=== PATIENT | female | born 1990 | race Caucasian/White ===

== ENCOUNTER 2023-11-19 08:50 | Outpatient (OUT) | payer OTHER, SELFPAY ==
--- NOTE | 2023-11-19 08:52 | US_ITS ---
The [address] [address] Patient Name: KARLA HILL MRN: [id number] date: 1990 Sex: F Assigned Patient Location: US Current Patient Location: Accession/Order Number: [id number] Exam Date: 11/19/2023 08:53 Report Date: 11/19/2023 10:02 At the request of: TEJAS SHAH Procedure: US thyroid EXAMINATION: US thyroid HISTORY: Thyroid Nodule E04.1 COMPARISON: No relevant comparison available. TECHNIQUE: Sonographic images of the thyroid gland were obtained. FINDINGS: The right thyroid lobe is normal in size, contour and homogeneous echotexture measuring 4.4 x 1.0 x 1.0 cm. No focal nodule The thyroid isthmus measures 2 mm. No focal nodule The left thyroid lobe is normal in size, contour and homogeneous echotexture measuring 3.4 x 0.6 x 0.9 cm. No focal nodule Normal size normal morphology lymph node noted adjacent to the left thyroid lobe measuring 0.8 x 0.3 x 0.5 mm in size US/US thyroid IMPRESSION: Normal exam Electronically authenticated by: ELLYN RAO Date: 11/19/2023 10:02
[2023-11-19 09:48] LABS: Basophils Absolute Auto 0.1 10^3/uL (0.0-0.1); Basophils Percent Auto 1.5 % (0.2-2.0); Eosinophils Absolute Auto 0.2 10^3/uL (0.0-0.7); Eosinophils Percent Auto 2.9 % (0.9-7.0); Hematocrit 39.8 % (36.0-48.0); Hemoglobin 12.3 g/dL (12.0-16.0); Immature Granulocytes Abs Auto 0.02 10^3/uL (0.00-0.03); Immature Granulocytes Pct Auto 0.3 % (0.0-0.5); Lymphocytes Absolute Auto 2.1 10^3/uL (1.2-3.8); Lymphocytes Percent Auto 31.3 % (20.5-60.0); Mean Corpuscular HGB Conc 30.9 g/dL (29.9-35.2); Mean Corpuscular Hemoglobin 27.2 pg (26.7-34.0); Mean Corpuscular Volume 88.1 fL (81.0-99.0); Mean Platelet Volume 11.2 fL (9.5-13.5); Monocytes Absolute Auto 0.5 10^3/uL (0.3-0.8); Monocytes Percent Auto 7.1 % (1.7-12.0); Neutrophils Absolute Auto 3.9 10^3/uL (1.4-6.5); Neutrophils Percent Auto 56.9 % (43.0-75.0); Platelet Count 311 10^3/uL (150-450); Red Blood Count 4.52 10^6/uL (4.20-5.40); White Blood Count 6.8 10^3/uL (4.0-11.0)
[2023-11-19 10:56] LABS: Free T4 1.43 ng/dL (0.76-1.46)
[2023-11-19 10:56] LABS: Bilirubin Urine NEGATIVE (NEGATIVE); Blood Urine NEGATIVE (NEGATIVE); Clarity Urine CLEAR (CLEAR); Color Urine LT. YELLOW (YELLOW); Glucose Urine UA NEGATIVE (NEGATIVE); Ketones Urine NEGATIVE (NEGATIVE); Leukocyte Esterase Urine NEGATIVE (NEGATIVE); Nitrite Urine NEGATIVE (NEGATIVE); Protein Urine NEGATIVE (NEG/TRACE); Urobilinogen Urine 0.2 EU/dL (0.2-1.0)
[2023-11-19 10:58] LABS: Alanine Aminotransferase 23 U/L (14-59); Albumin Globulin Ratio 0.9; Albumin Level 3.6 g/dL (3.4-5.0); Alkaline Phosphatase 61 U/L (46-116); Anion Gap 8.6; Aspartate Amino Transferase 12 U/L (15-37); BUN Creatinine Ratio 13.2; Bilirubin Total 0.4 mg/dL (0.2-1.0); Calcium 9.2 mg/dL (8.5-10.1); Carbon Dioxide 31.3 mmol/L (21.0-32.0); Chloride 104 mmol/L (98-107); Chol HDL Ratio 5.8; Cholesterol 215 mg/dL (<=200); Estimated GFR (African America >60 (>=60); Estimated GFR (Non-African Ame >60 (>=60); Glucose 89 mg/dL (74-106); HDL Cholesterol 37 mg/dL (40-60); Potassium 3.9 mmol/L (3.5-5.1); Sodium 140 mmol/L (136-145); Total Protein 7.6 g/dL (6.4-8.2); Triglycerides 169 mg/dL (<=150); VLDL CHOLESTEROL 33.8 mg/dL
[2023-11-19 10:58] LABS: Urine Microscopic Indicated NO
== END 2023-11-19 08:51 | disposition home or self-care (01) ==
LOC: US 08:50
PROVIDERS: PCP Nurse Practitioner; Visit Provider Nurse Practitioner
DX: Z00.00 Encounter for general adult medical examination without abnormal findings (principal); E04.1 Nontoxic single thyroid nodule
CPT/HCPCS: 36415; 76536; 80053; 80061; 81003; 84439; 84443; 85025

== ENCOUNTER 2024-12-12 14:07 | Outpatient (OUT) | payer OTHER, SELFPAY ==
--- OUTSIDE RECORDS SUMMARY | 2024-12-12 14:19 | XMS_ITS | CCD ---
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 160 - 189 mg/dl HIGH >190 mg/dl VERY HIGH Performed By: #### C MP, LIPID, TSH #### [facility] [address] [address] [address] Chico Grady Triglyceride [Mass/Vol] 177 mg/dL Critically high <=150 [facility] Comment on above: Performed By: #### C MP, LIPID, TSH #### [facility] [address] [address] [address] Chico Grady VLDL CALC 35.4 mg/dL Normal [facility] Comment on above: Performed By: #### C MP, LIPID, TSH #### [facility] [address] [address] [address] Chico Grady PROF 14(COMP METB)on 022 Albumin [Mass/Vol] 3.6 g/dL Normal 3.4-5.[address] [facility] Comment on above: Performed By: #### C MP, LIPID, TSH #### [facility] [address] [address] [address] Chico Grady Albumin/Globulin [Mass ratio] 1.0 {ratio} Normal [facility] Comment on above: Performed By: #### C MP, LIPID, TSH #### [facility] [address] [address] [address] Chico Grady ALP [Catalytic activity/Vol] 55 U/L Normal 46-116 [facility] Comment on above: Performed By: #### C MP, LIPID, TSH #### [facility] [address] [address] [address] Chico Grady ALT [Catalytic activity/Vol] 23 U/L Normal 14-59 [facility] Comment on above: Performed By: #### C MP, LIPID, TSH #### [facility] [address] [address] [address] Chico Grady Anion gap [Moles/Vol] 14.4 mmol/L Normal [facility] Comment on above: Performed By: #### C MP, LIPID, TSH #### [facility] [address] [address] [address] Chico Grady AST [Catalytic activity/Vol] 16 U/L Normal 15-37 [facility] Comment on above: Performed By: #### C MP, LIPID, TSH #### [facility] [address] [place] [address] Dr. Chico Grady Bilirubin [Mass/Vol] 0.5 mg/dL Normal 0.2-1.0 [facility] Comment on above: Performed By: #### C MP, LIPID, TSH #### [facility] [address] [address] [address] Chico Grady Calcium [Mass/Vol] 9.0 mg/dL Normal 8.5-10.[address] [facility] Comment on above: Performed By: #### C MP, LIPID, TSH #### [facility] [address] [place] [address] Dr. Chico Grady Chloride [Moles/Vol] 104 mmol/L Normal 98-107 [facility] Comment on above: Performed By: #### C MP, LIPID, TSH #### [facility] [address] [address] [address] Chico Grady CO2 [Moles/Vol] 22.5 mmol/L Normal 21.0-32.0 [facility] Comment on above: Performed By: #### C MP, LIPID, TSH #### [facility] [address] [address] [address] Chico Grady Creatinine [Mass/Vol] 0.84 mg/dL Normal 0.55-1.02 [facility] Comment on above: Performed By: #### C MP, LIPID, TSH #### [facility] [address] [address] [address] Chico Grady EGFR-AF KITTITIAN >60 Normal >=60 [facility] Comment on above: Performed By: #### C MP, LIPID, TSH #### [facility] [address] [address] [address] Chico Grady EGFR-NON AF KITTITIAN >60 Normal >=60 [facility] Comment on above: Performed By: #### C MP, LIPID, TSH #### [facility] [address] [address] [address] Chico Grady Globulin (S) [Mass/Vol] 3.7 g/dL Normal [facility] Comment on above: Performed By: #### C MP, LIPID, TSH #### [facility] [address] [address] [address] Chico Grady Glucose [Mass/Vol] 97 mg/dL Normal 74-[address] [facility] Comment on above: Performed By: #### C MP, LIPID, TSH #### [facility] [address] [address] [address] Chico Grady Potassium [Moles/Vol] 3.9 mmol/L Normal 3.5-5.1 [facility] Comment on above: Performed By: #### C MP, LIPID, TSH #### [facility] [address] [address] [address] Chico Grady Protein [Mass/Vol] 7.3 g/dL Normal 6.4-8.2 [facility] Comment on above: Performed By: #### C MP, LIPID, TSH #### [facility] [address] [address] [address] Chico Grady Sodium [Moles/Vol] 137 mmol/L Normal 136-145 [facility] Comment on above: Performed By: #### C MP, LIPID, TSH #### [facility] [address] [address] [address] Chico Grady Urea nitrogen [Mass/Vol] 13.0 mg/dL Normal 7.0-18.0 [facility] Comment on above: Performed By: #### C MP, LIPID, TSH #### [facility] [address] [place] [address] Dr. Chico Grady Urea nitrogen/Creatinine [Mass ratio] 15.5 mg/mg Normal [facility] Comment on above: Performed By: #### C MP, LIPID, TSH #### [facility] [address] [place] [address] Dr. Chico Grady TSHon 06-24-2022 TSH 2.473 uIU/mL Normal 0.358-3.740 [facility] Comment on above: Performed By: #### C MP, LIPID, TSH #### [facility] [address] [place] [address] Dr. Chico Grady UA RANDOM W/MICROSCOPICon BACTERIA TRACE Abnormal NONE SEEN [facility] Comment on above: Performed By: #### F T4 #### [facility] [address] [place] [address] Dr. Chico Grady Bilirubin Ql (U) Negative Normal NEGATIVE [facility] Comment on above: Performed By: #### F T4 #### [facility] [address] [place] [address] Dr. Chico Grady CAST NONE SEEN Normal NONE SEEN [facility] Comment on above: Performed By: #### F T4 #### [facility] [address] [place] [address] Dr. Chico Grady Clarity (U) CLEAR Normal CLEAR [facility] Comment on above: Performed By: #### F T4 #### [facility] [address] [place] [address] Dr. Chico Grady Color (U) LT. YELLOW Normal YELLOW [facility] Comment on above: Performed By: #### F T4 #### [facility] [address] [place] [address] Dr. Chico Grady Crystals LM Nom (Urine sed) NONE SEEN Normal NONE SEEN [facility] Comment on above: Performed By: #### F T4 #### [facility] [address] [place] [address] Dr. Chico Grady Epithelial cells LM Ql (Urine sed) MODERATE Abnormal NONE SEEN /RARE [facility] Comment on above: Performed By: #### F T4 #### [facility] [address] [place] [address] Dr. Chico Grady Glucose Ql (U) Negative Normal NEGATIVE [facility] Comment on above: Performed By: #### F T4 #### [facility] [address] [place] [address] Dr. Chico Grady Hemoglobin Ql (U) Negative Normal NEGATIVE [facility] Comment on above: Performed By: #### F T4 #### [facility] [address] [place] [address] Dr. Chico Grady Ketones Ql (U) Negative Normal NEGATIVE [facility] Comment on above: Performed By: #### F T4 #### [facility] [address] [place] [address] Dr. Chico Grady LEUKOCYTES Negative Normal NEGATIVE [facility] Comment on above: Performed By: #### F T4 #### [facility] [address] [place] [address] Dr. Chico Grday MUCOUS NONE SEEN Normal NONE SEEN [facility] Comment on above: Performed By: #### F T4 #### [facility] [address] [place] [address] Dr. Chico Grady Nitrite Ql (U) Negative Normal NEGATIVE [facility] Comment on above: Performed By: #### F T4 #### [facility] [address] [place] [address] Dr. Chico Grady pH (U) 6.0 [pH] Normal 5-9 [facility] Comment on above: Performed By: #### F T4 #### [facility] [address] [place] [address] Dr. Chico Grady RBC NONE SEEN Abnormal 0-2 [facility] Comment on above: Performed By: #### F T4 #### [facility] [address] [place] [address] Dr. Chico Grady SPEC GRAVITY 1.025 Normal 1.005-<=1.025 [facility] Comment on above: Performed By: #### F T4 #### [facility] [address] [address] [address] Chico Grady UA PROTEIN Negative Normal NEGATIVE/ TRACE [facility] Comment on above: Performed By: #### F T4 #### [facility] [address] [place], [place] [address] Dr. Chico Grady Urobilinogen Qn (U) 0.2 {Meliton'U}/dL Normal 0.2 - 1. 0 [facility] Comment on above: Performed By: #### F T4 #### [facility] [address] [address] [address] Chico Grady WBC 0-2 Abnormal NONE SEEN [facility] Comment on above: Performed By: #### F T4 #### [facility] [address] [place] [address] Dr. Chico Grady Q - HCG TOTAL QNon 2 HCG, TOTAL, QN <3 Normal [facility] Comment on above: Order Comment: [facility] performed at: [facility], [facility], [address] [place] [address], [address] [place] [address], [phone], Biomed Tech: Navi Cunningham MD [facility] Collection Date/Time: [facility] Results Received Date/Time: [facility] Reported Date/Time: Result Comment: Refe rence Range Non or premenopausal <5 Postmenopausal <10 Values from different assay methods may vary. The use of this assay to monitor or to diagnose patients with cancer or any condition unrelated to has not been cleared or approved by the FDA or the pattern lease inspector of the assay. Performed By: #### 2 [id number] #### [facility] [address] [place] [address] Complete Blood Counton 11-11 Erythrocyte distribution width (RBC) [Ratio] 14.3 % Normal 11.0-15.0 [facility] Comment on above: Performed By: #### F T4, CMP, CBC, TSH #### [facility] [address] [place], [place] [id number] Hematocrit (Bld) [Volume fraction] 38.6 % Normal 35.0-47.[address] [facility] Comment on above: Performed By: #### F T4, CMP, CBC, TSH #### [facility] [address] [place], [place] [id number] Hemoglobin (Bld) [Mass/Vol] 12.0 g/dL Normal 11.6-15.[address] [facility] Comment on above: Performed By: #### F T4, CMP, CBC, TSH #### [facility] [address] [place], [place] [id number] MCH (RBC) [Entitic mass] 26.5 pg Low 27.0-33.[address] [facility] Comment on above: Performed By: #### F T4, CMP, CBC, TSH #### [facility] [address] [place], [place] [id number] MCHC (RBC) [Mass/Vol] 31.1 g/dL Low 32.0-36.[address] [facility] Comment on above: Performed By: #### F T4, CMP, CBC, TSH #### [facility] [address] [place], [place] [id number] MCV (RBC) [Entitic vol] 85 fL Normal 80-[address] [facility] Comment on above: Performed By: #### F T4, CMP, CBC, TSH #### [facility] [address] [place], [place] [id number] Platelet mean volume (Bld) [Entitic vol] 11.20 fL Normal 7.50-12.50 [facility] Comment on above: Performed By: #### F T4, CMP, CBC, TSH #### [facility] [address] [place], [place] [id number] Platelets (Bld) [#/Vol] 333 10*3/uL Normal 140-[address] [facility] Comment on above: Performed By: #### F T4, CMP, CBC, TSH #### [facility] [address] [place], [place] [id number] RBC (Bld) [#/Vol] 4.53 10*6/uL Normal 3.90-5.20 [facility] Comment on above: Performed By: #### F T4, CMP, CBC, TSH #### [facility] [address] [place], [place] [id number] RDW-SD 44.1 fL Normal 37.0-50.0 [facility] Technologist Comment on above: Performed By: #### F T4, CMP, CBC, TSH #### [facility] [address] [place], [place] [id number] WBC (Bld) [#/Vol] 9.6 10*3/uL Normal 3.8-11.0 [employer] Comment on above: Performed By: #### F T4, CMP, CBC, TSH #### [facility] [address] [place], [place] [id number] Comprehensive Metabolic Pane raguh 11-11-2021 Albumin [Mass/Vol] 4.4 g/dL Normal 3.6-5.1 [employer] [employer] Comment on above: Performed By: #### F T4, CMP, CBC, TSH #### [facility] [address] [place], [place] [id number] Albumin/Globulin [Mass ratio] 1.8 {ratio} Normal 1.0-2.5 [facility] Techn[facility] Comment on above: Performed By: #### F T4, CMP, CBC, TSH #### [facility] [address] [place], [place] [id number] ALP [Catalytic activity/Vol] 64 U/L Normal 35-119 [facility] Techn[facility] Comment on above: Performed By: #### F T4, CMP, CBC, TSH #### [facility] [address] [place], [place] [id number] ALT [Catalytic activity/Vol] 16 U/L Normal 6-33 [facility] Techn[facility] Comment on above: Result Comment: 08/20 Female reference range changed. Performed By: #### F T4, CMP, CBC, TSH #### [facility] [address] [place], [place] [id number] Anion gap [Moles/Vol] 18 mmol/L Normal 12-20 [facility] Techn[facility] Comment on above: Result Comment: Effe ctive 09/25/2019 reference range changed. Performed By: #### F T4, CMP, CBC, TSH #### [facility] [address] [place], [place] [id number] AST [Catalytic activity/Vol] 14 U/L Normal 9-34 [facility] Comment on above: Performed By: #### F T4, CMP, CBC, TSH #### [facility] [address] [place], [place] [id number] BUN/CREA 14 Ratio Normal 6-22 [facility] Comment on above: Performed By: #### F T4, CMP, CBC, TSH #### [facility] [address] [place], [place] [id number] Calcium [Mass/Vol] 9.4 mg/dL Normal 8.6-10.2 [facility] Comment on above: Performed By: #### F T4, CMP, CBC, TSH #### [facility] [address] [place], [place] [id number] Chloride [Moles/Vol] 106 mmol/L Normal 98-107 [facility] Comment on above: Performed By: #### F T4, CMP, CBC, TSH #### [facility] [address] [place], [place] [id number] CO2 [Moles/Vol] 22 mmol/L Normal 20-31 [facility] Comment on above: Performed By: #### F T4, CMP, CBC, TSH #### [facility] [address] [place], [place] [id number] Creatinine [Mass/Vol] 0.7 mg/dL Normal 0.6-1.4 [facility] Comment on above: Performed By: #### F T4, CMP, CBC, TSH #### [facility] [address] [place], [place] [id number] eGFRAA 119 mL/min/1.73m2 Normal >60 [facility] Comment on above: Performed By: #### F T4, CMP, CBC, TSH #### [facility] [address] [place], [place] [id number] eGFRNAA 98 mL/min/1.73m2 Normal >60 [facility] Comment on above: Performed By: #### F T4, CMP, CBC, TSH #### [facility] [address] [place], [place] [id number] Globulin (S) [Mass/Vol] 2.4 g/dL Normal 1.9-3.7 [facility] Technologist Comment on above: Performed By: #### F T4, CMP, CBC, TSH #### [facility] [address] [place], [place] [id number] Glucose [Mass/Vol] 92 mg/dL Normal 65-99 [employer] Comment on above: Result Comment: For FASTING Glucose --- ADA reference ranges: Normal 65-99 mg/dl Prediabetes 100-125 Diabetes >/= 126 Performed By: #### F T4, CMP, CBC, TSH #### [facility] [address] [place], [place] [id number] Potassium [Moles/Vol] 4.3 mmol/L Normal 3.5-5.5 [facility] Technologist Comment on above: Performed By: #### F T4, CMP, CBC, TSH #### [facility] [address] [place], [place] [id number] Protein [Mass/Vol] 6.8 g/dL Normal 6.1-8.1 [employer] [facility] Comment on above: Performed By: #### F T4, CMP, CBC, TSH #### [facility] [address] [place], [place] [id number] Sodium [Moles/Vol] 141 mmol/L Normal 135-146 [employer] [facility] [employer] [employer] Comment on above: Performed By: #### F T4, CMP, CBC, TSH #### [facility] [address] [place], [place] [id number] TBIL <0.3 Normal [facility] Technologist Comment on above: Performed By: #### F T4, CMP, CBC, TSH #### [facility] [address] [place], [place] [id number] Urea nitrogen [Mass/Vol] 10 mg/dL Normal 7-25 [facility] Techn[facility] Comment on above: Performed By: #### F T4, CMP, CBC, TSH #### [facility] [address] [place], [place] [id number] Free T4on 11-11-2021 Free T4 [Mass/Vol] 1.50 ng/dL Normal 0.80-1.80 [employer] Comment on above: Performed By: #### F T4, CMP, CBC, TSH #### [facility] [address] [place], [place] [id number] Hemoglobin A1Con 11-11-2021 EAG 116.89 Normal [facility] Technologist Comment on above: Performed By: #### A 1C #### [facility] [address] [place], [place] [id number] HbA1c (Bld) [Mass fraction] 5.7 % Normal 4.0-6.0 [facility] Product[facility] Technologist Comment on above: Performed By: #### A 1C #### [facility] [address] [place], [place] [id number] Q - INSULIN,SERUMon 11-11-19 22 INSULIN 12.5 uIU/mL Normal [facility] Product[facility]Device Technologist Comment on above: Order Comment: [facility] performed at: [facility], [employer] [facility], [address] [place] [address], [phone], Biomed Tech: Navi Cunningham MD [facility] Collection Date/Time: [facility] Results Received Date/Time: [facility] Reported Date/Time: FASTING: NO Result Comment: Refe rence Range < or = 19.6 Risk: Optimal < or = 19.6 Moderate NA High >19.6 Adult cardiovascular event risk category cut points (optimal, moderate, high) are based on [employer] population data from 08/2011. This insulin assay shows strong cross-reactivity for some insulin analogs (lispro, aspart, and glargine) and much lower cross-reactivity with others (detemir, glulisine). Performed By: #### 5 61 #### [facility] [address] [place] [address] Q - THINPREP(R) TIS AND HPV MRNA E6/E7 RFL HPV 16/18/45on 11-11-2021 CLINICAL INFORMATION: None given Normal [facility] Product[facility]Device Technologist Comment on above: Order Comment: [facility] performed at: [facility], [address] [place] [address], [address] [place] [address] [place], [phone], Biomed Tech: Navi Cunningham MD [facility] Collection Date/Time: [facility] Results Received Date/Time: [facility] Reported Date/Time: Performed By: #### 9 1414 #### [facility] [address] [place] [address] COMMENT SEE NOTE Normal [facility] Product[facility] Technologist Comment on above: Order Comment: [facility] performed at: [employer], [address] [place] [address], [address] [place] [address], [address] [place] [address], Biomed Tech: Navi Cunningham MD [facility] Collection Date/Time: [facility] Results Received Date/Time: [facility] Reported Date/Time: Result Comment: EXPL ANATORY NOTE: The Pap is a screening test for cervical cancer. It is not a diagnostic test and is subject to false negative and false positive results. It is most reliable when a satisfactory sample, regularly obtained, is submitted with relevant clinical findings and history, and when the Pap result is evaluated along with historic and current clinical information. Performed By: #### 9 1414 #### [facility] [address] [place] [address] COMMENT: This Pap test has been evaluated with computer assisted technology. Normal [facility] Product/Device Technologist Comment on above: Order Comment: [facility] performed at: [facility] [facility], [address] [place] [address], [address] [place] [address], [address] [place] [address], Biomed Tech: Navi Cunningham MD [facility] Collection Date/Time: [facility] Results Received Date/Time: [facility] Reported Date/Time: Performed By: #### 9 1414 #### [facility] [address] [place] [address] CASTING ASSOCIATE: SEE NOTE Normal [facility] Comment on above: Order Comment: [facility] performed at: [employer] [facility], [address] [place] [address], [address] [place] [address], [address] [place] [address], Biomed Tech: Navi Cunningham MD [facility] Collection Date/Time: [facility] Results Received Date/Time: [facility] Reported Date/Time: Result Comment: BH, CT(ASCP) CT screening location: [place] [address]. Performed By: #### 9 1414 #### [facility] [address] [place] [address] HPV mRNA E6/E7 Not detected Normal Not Detected [facility] Comment on above: Order Comment: [facility] performed at: [facility], [address] [place] [address], Biomed Tech: Navi Cunningham MD [facility] Collection Date/Time: [facility] Results Received Date/Time: [facility] Reported Date/Time: Result Comment: Meth odology: Staffing Analyst-Mediated Amplification This assay detects E6/E7 viral messenger RNA (mRNA) from 14 high-risk HPV types (16,18,31,33,35,39,45,51,52,56,58,59,66,68). The analytical performance characteristics of this assay have been determined by [employer]. The modifications have not been cleared or approved by the FDA. This assay has been validated pursuant to the CLIA regulations and is used for clinical purposes. For additional information, please refer to http://education.[employer]/faq/FZR733c5 (This link if provided for information/ educational purposes only.) Performed By: #### 9 1414 #### [facility] Default [address] [place] [address] INTERPRETATION/RESUL T: Negative Normal [facility] Comment on above: Order Comment: [facility] Testing performed at: [employer], [address] [place] [address], [address] [place] [address], Biomed Tech: Navi Cunningham MD [facility] Collection Date/Time: [facility] Results Received Date/Time: [facility] Reported Date/Time: Performed By: #### 9 1414 #### [facility] Default [address] [place] [address] LMP: None given Normal [place] Product/Device Technologist Comment on above: Order Comment: [facility] Testing performed at: [facility] [employer] [facility], [address] [place] [address], [address] [place] [address], [address] [place] [address], Biomed Tech: Navi Cunningham MD [facility] Date/Time: [facility] Results Received Date/Time: [facility] Reported Date/Time: Performed By: #### 9 1414 #### [facility] Default [address] [place] [address] PREV. BX: None given Normal [facility] Specialist Comment on above: Order Comment: [facility] performed at: [facility] [employer] [place], [address] [place] [address], [address] [place] [address], [address] [place] [address], Biomed Tech: Navi Cunningham MD [facility] Date/Time: [facility] Results Received Date/Time: [facility] Reported Date/Time: Performed By: #### 9 1414 #### [facility] Default [address] [place] [address] PREV. PAP: None given Normal [facility] Comment on above: Order Comment: [facility] performed at: [facility] [employer] [place], [address] [place] [address], [address] [place] [address], [address] [place] [address], Biomed Tech: Navi Cunningham MD [facility] Date/Time: [facility] Results Received Date/Time: [facility] Reported Date/Time: Performed By: #### 9 1414 #### [facility] Default [address] [place] [address] SOURCE: None given Normal [facility] Comment on above: Order Comment: [facility] performed at: [employer] [employer] [facility], [address] [place] [address], [address] [place] [address], [address] [place] [address], Biomed Tech: Navi Cunningham MD [facility] Date/Time: [facility] Results Received Date/Time: [facility] Reported Date/Time: Performed By: #### 9 1414 #### [facility] Default [address] [place] [address] STATEMENT OF ADEQUACY: SEE NOTE Normal [facility] Product/Device Technologist Comment on above: Order Comment: [facility] performed at: [facility], [address] [facility], [address] [place] [address] - [address] , [place], [address], Biomed Tech: Navi Cunningham MD [facility] Date/Time: [facility] Results Received Date/Time: [facility] Reported Date/Time: Result Comment: Sati sfactory for evaluation. Endocervical/transformation zone component absent. Performed By: #### 9 1414 #### [facility] Default [address] [place] [address] TSHon 11-11-2021 TSH 1.080 uIU/mL Normal 0.400-4.500 [facility] Product/Device Technologist Comment on above: Performed By: #### F T4, CMP, CBC, TSH #### [facility] [address] [place] [id number] Vital Signs Date Time Vital Sign Value Performing Clinician Facility 10-12-2024 11:32-0500 Body mass index (BMI) [Ratio] 32.23 kg/m2 Xenia Heaton NIGHTCLUB MANAGER Work Phone: [facility] 10-12-2024 11:32-0500 Body temperature 100.09 [degF] Xenia Heaton NIGHTCLUB MANAGER Work Phone: [facility] 10-12-2024 11:32-0500 Body weight 93.35 kg Xenia Heaton NIGHTCLUB MANAGER Work Phone: [facility] 10-12-2024 11:32-0500 Diastolic blood pressure 96 mm[Hg] Xenia Heaton NIGHTCLUB MANAGER Work Phone: [facility] 10-12-2024 11:32-0500 Heart rate 100 /min Xenia Heaton NIGHTCLUB MANAGER Work Phone: [facility] 10-12-2024 11:32-0500 Respiratory rate 20 /min Xenia Diasz NIGHTCLUB MANAGER Work Phone: [facility] 10-12-2024 11:32-0500 SaO2% (BldA) [Mass fraction] 98 % Xeniamoy Diasz NIGHTCLUB MANAGER Work Phone: [facility] 10-12-2024 11:32-0500 Systolic blood pressure 124 mm[Hg] Xenia Yeisonholz NIGHTCLUB MANAGER Work Phone: [facility] 09-04-2024 17:07-0500 Body height 170.2 cm Xenia Yeisonholz NIGHTCLUB MANAGER Work Phone: [facility] 09-04-2024 17:07-0500 Body mass index (BMI) [Ratio] 32.55 kg/m2 Xenia Yeisonholz NIGHTCLUB MANAGER Work Phone: [facility] 09-04-2024 17:07-0500 Body temperature 98.71 [degF] Xenia Yeisonholz NIGHTCLUB MANAGER Work Phone: [facility] 09-04-2024 17:07-0500 Body weight 94.26 kg Xeniamoy Lathamholz NIGHTCLUB MANAGER Work Phone: [facility] 09-04-2024 17:07-0500 Diastolic blood pressure 78 mm[Hg] Xenia Yeisonholz NIGHTCLUB MANAGER Work Phone: [facility] 09-04-2024 17:07-0500 Heart rate 74 /min Xenia Yeisonholz NIGHTCLUB MANAGER Work Phone: [facility] 09-04-2024 17:07-0500 Respiratory rate 18 /min Xenia Yeisonholz NIGHTCLUB MANAGER Work Phone: [facility] 09-04-2024 17:07-0500 SaO2% (BldA) [Mass fraction] 98 % Xenia Yeisonholz NIGHTCLUB MANAGER Work Phone: [facility] 09-04-2024 17:07-0500 Systolic blood pressure 110 mm[Hg] Xenia Aichholz NIGHTCLUB MANAGER Work Phone: [facility] 02-15-2024 17:38-0400 Heart rate 91 /min Xenia Aichholz Work Phone: [facility] 02-15-2024 17:11-0400 Body height 172.72 cm Xenia Aichholz Work Phone: [facility] 02-15-2024 17:11-0400 Body temperature 97.4 [degF] Xenia Aichholz Work Phone: [facility] 02-15-2024 17:11-0400 Body weight 97.5 kg Xenia Aichholz Work Phone: [facility] 02-15-2024 17:11-0400 Diastolic blood pressure 71 mm[Hg] Xenia Aichholz Work Phone: [facility] 02-15-2024 17:11-0400 Respiratory rate 16 /min Xenia Aichholz Work Phone: [facility] 02-15-2024 17:11-0400 SaO2% (BldA) [Mass fraction] 96 % Xenia Aichholz Work Phone: [facility] 02-15-2024 17:11-0400 Systolic blood pressure 133 mm[Hg] Xenia Aichholz Work Phone: [facility] 02-09-2022 14:05-0400 Body height 170.18 cm Leonor Zuluaga Other [email or web address] Other 02-09-2022 14:05-0400 Body mass index (BMI) [Ratio] 34.3 kg/m2 Leonor Zuluaga Other [email or web address] Other 02-09-2022 14:05-0400 Body temperature 98.8 [degF] Leonor Zuluaga Other [email or web address] Other 02-09-2022 14:05-0400 Body weight 99.34 kg Leonor Zuluaga Other [email or web address] Other 02-09-2022 14:05-0400 Diastolic blood pressure 68 mm[Hg] Leonor Zuluaga Other [email or web address] Other 02-09-2022 14:05-0400 Respiratory rate 18 /min Leonor Zuluaga Other [email or web address] Other 02-09-2022 14:05-0400 SaO2% (BldA) [Mass fraction] 99 % Leonor Zuluaga Other [email or web address] Other 02-09-2022 14:05-0400 Systolic blood pressure 131 mm[Hg] Leonor Zuluaga Other [email or web address] Other Encounters Encounter Date Encounter Type Care Provider Facility Start: 12-04-2024 End: 12-04-2024 ambulatory XENIA FLORINA Not Available Start: 11-09-2024 End: 11-09-2024 Refill Xeniamoy Heaton NIGHTCLUB MANAGER Work Phone: [facility] Comment on above: Mixed hyperlipidemia (CMS/HCC) (Primary Dx) Start: 11-02-2024 End: 11-03-2024 Orders Only Xenia Heaton NIGHTCLUB MANAGER Work Phone: [facility] Comment on above: Hypothyroidism, unsp ecified type (CMS/HCC) (Primary Dx); Hypertriglyceridemia (CMS/HCC); Encounter for wellness examination in adult Chronic migraine wit hout aura without status migrainosus, not intractable (CMS/HCC) Start: 11-02-2024 End: 11-02-2024 Patient encounter status Xenia Heaton NIGHTCLUB MANAGER Work Phone: [facility] Start: 11-02-2024 End: 11-02-2024 Refill Xenia Florina NIGHTCLUB MANAGER Work Phone: [facility] Comment on above: Hypothyroidism, unsp ecified type (CMS/HCC) Start: 10-23-2024 End: 10-23-2024 Refill Xenia Heaton NIGHTCLUB MANAGER Work Phone: [facility] Comment on above: Chronic migraine wit hout aura without status migrainosus, not intractable (CMS/HCC) (Primary Dx) Start: 10-17-2024 End: 10-17-2024 Refill Xenia Florina NIGHTCLUB MANAGER Work Phone: [facility] Comment on above: Dyspnea, unspecified type Start: 10-12-2024 End: 10-12-2024 Bamboo flowsheet Xenia Heaton NIGHTCLUB MANAGER Work Phone: [facility] Start: 10-12-2024 End: 10-12-2024 Bamboo flowsheet Xenia Heaton NIGHTCLUB MANAGER Work Phone: [facility] Start: 10-12-2024 End: 10-12-2024 Office outpatient visit 15 minutes Xenia Heaton NIGHTCLUB MANAGER Work Phone: [facility] Comment on above: COVID (Primary Dx); Obesity (BMI 30-39.9) Start: 10-12-2024 End: 10-12-2024 ambulatory XENIA HEATON Not Available Start: 09-28-2024 End: 09-28-2024 Orders Only Xenia Heaton NIGHTCLUB MANAGER Work Phone: [facility] Comment on above: Measles, mumps, rube lla (MMR) vaccination administered 2 years ago or longer (Primary Dx); Unknown varicella vaccination status Start: 09-25-2024 End: 09-25-2024 Refill Xenia Heaton NIGHTCLUB MANAGER Work Phone: [facility] Comment on above: Chronic migraine wit hout aura without status migrainosus, not intractable (CMS/HCC) (Primary Dx) Start: 09-04-2024 End: 09-04-2024 Patient encounter status Xenia Heaton NIGHTCLUB MANAGER Work Phone: [facility] Start: 09-04-2024 End: 09-04-2024 Periodic preventive med est patient 18-39 yrs Xenia Heaton NIGHTCLUB MANAGER Work Phone: [facility] Comment on above: Encounter for [facility] ss examination in adult (Primary Dx); Obesity (BMI 30-39.9); Hypothyroidism, unspecified type (CMS/HCC); Chronic migraine without aura without status migrainosus, not intractable (CMS/HCC) Start: 09-04-2024 End: 09-04-2024 ambulatory XENIA DAGOHHOLZ Not Available Start: 09-04-2024 End: 09-04-2024 Bamboo flowsheet Xenia Heaton NIGHTCLUB MANAGER Work Phone: [facility] Start: 09-04-2024 End: 09-04-2024 Bamboo flowsheet Xenia Heaton NIGHTCLUB MANAGER Work Phone: [facility] Start: 06-07-2024 End: 06-07-2024 Refill Xenia Heaton NIGHTCLUB MANAGER Work Phone: [facility] Comment on above: Chronic migraine wit hout aura without status migrainosus, not intractable (CMS/HCC) Start: 02-21-2024 End: 02-21-2024 ambulatory XENIA AICHHOLZ Not Available Start: 02-15-2024 End: 02-15-2024 Emergency department patient visit Xenia Heaton Work Phone: [facility] Work Phone: Start: 01-17-2024 End: 01-17-2024 ambulatory XENIA AICHHOLZ Not Available Start: 11-08-2023 Patient encounter status Xenia Florina NIGHTCLUB MANAGER Work Phone: [facility] Start: 02-02-2023 End: 02-03-2023 ambulatory [employer] XENIA AICHHOLZ Facility:[facility] Start: 01-14-2023 End: 01-15-2023 ambulatory SO[employer] POW[employer] MIXER XENIA AICHHOLZ Facility:[facility] Start: 06-26-2022 Encounter for genera l adult medical examination without abnormal findings CRISTIANA HEATON [facility] Start: 06-24-2022 End: 06-25-2022 ambulatory CRISTIANA HEATON Facility:[facility] Start: 06-24-2022 End: 06-25-2022 Encounter for general adult medical examination without abnormal findings CRISTIANA HEATON Facility:[facility] Start: 02-09-2022 End: 02-09-2022 ambulatory Leonor Zuluaga Other [email or web address] Other Start: 02-09-2022 Office outpatient ne w 30 minutes Leonor Zuluaga [facility] Procedures Date Procedure Procedure Detail Performing Clinician Start: 02-15-2024 Plain chest X-ray Xenia Heaton Work Phone: Plan of Treatment Date Care Activity Detail Author Start: 11-11-2026 Screening for malign ant neoplasm of cervix [facility] Start: 01-08-2025 End: 11-09-2025 Alanine aminotransferase [Enzymatic activity/volume] in Serum or Plasma ALT Lab Routine Mixed hyperlipidemia ([facility]/HCC) Expected: 01/08/2025 (Approximate), Expires: 11/09/2025 [facility] Work Phone: Comment on above: Expected: 01/08/2025 (Approximate), Expires: 11/09/2025 Start: 01-08-2025 End: 11-09-2025 Aspartate aminotransferase [Enzymatic activity/volume] in Serum or Plasma AST Lab Routine Mixed hyperlipidemia (CMS/HCC) Expected: 01/08/2025 (Approximate), Expires: 11/09/2025 [facility] Comment on above: Expected: 01/08/2025 (Approximate), Expires: 11/09/2025 Start: 01-08-2025 End: 11-09-2025 Lipid 1996 panel - Serum or Plasma Lipid panel Lab Routine Mixed hyperlipidemia (CMS/HCC) Expected: 01/08/2025 (Approximate), Expires: 11/09/2025 [facility] Comment on above: Expected: 01/08/2025 (Approximate), Expires: 11/09/2025 Start: 12-04-2024 End: 12-04-2024 Patient encounter procedure 12/04/2024 5:00 PM EDT Office Visit [facility] [address] [place] [address] Xenia Heaton, MARITZA [address] [place] [address] [facility] Start: 11-02-2024 End: 11-02-2025 CBC W Auto Differential panel - Blood CBC and differential Lab Routine Encounter for wellness examination in adult Expected: 11/02/2024 (Approximate), Expires: 11/02/2025 [facility] Work Phone: Comment on above: Expected: 11/02/2024 (Approximate), Expires: 11/02/2025 Start: 11-02-2024 End: 11-02-2025 Comprehensive metabolic 2000 panel - Serum or Plasma Comprehensive metabolic panel Lab Routine Encounter for wellness examination in adult Expected: 11/02/2024 (Approximate), Expires: 11/02/2025 [facility] Comment on above: Expected: 11/02/2024 (Approximate), Expires: 11/02/2025 Start: 11-02-2024 End: 11-02-2025 Lipid 1996 panel - Serum or Plasma Lipid panel Lab Routine Encounter for wellness examination in adult Expected: 11/02/2024 (Approximate), Expires: 11/02/2025 [facility] Comment on above: Expected: 11/02/2024 (Approximate), Expires: 11/02/2025 Start: 11-02-2024 End: 11-02-2025 Thyrotropin [Units/volume] in Serum or Plasma TSH Lab Routine Encounter for wellness examination in adult Expected: 11/02/2024 (Approximate), Expires: 11/02/2025 [facility] Comment on above: Expected: 11/02/2024 (Approximate), Expires: 11/02/2025 Start: 11-02-2024 End: 11-02-2025 Thyroxine (T4) free [Mass/volume] in Serum or Plasma T4, free Lab Routine Encounter for wellness examination in adult Expected: 11/02/2024 (Approximate), Expires: 11/02/2025 [facility] Comment on above: Expected: 11/02/2024 (Approximate), Expires: 11/02/2025 Start: 11-02-2024 End: 11-02-2025 Urinalysis complete panel - Urine Urinalysis with reflex microscopic (clean catch) Lab Routine Encounter for wellness examination in adult Expected: 11/02/2024 (Approximate), Expires: 11/02/2025 [facility] Comment on above: Expected: 11/02/2024 (Approximate), Expires: 11/02/2025 Start: 10-12-2024 End: 10-12-2024 Patient encounter procedure 10/12/2024 11:30 AM EST Office Visit [facility] [address] [place] [phone] Xenia Heaton NP [address] [place] [address] Arrived [facility] Comment on above: Arrived Start: 09-28-2024 End: 09-28-2025 MEASLES, MUMPS AND REBELLA-(MMR)AB(IGG)PANEL, IMMUNE STATUS MEASLES, MUMPS AND REBELLA-(MMR)AB(IGG)MICHEL EL,IMMUNE STATUS Lab Routine Measles, mumps, rubella (MMR) vaccination administered 2 years ago or longer Expected: 09/28/2024 (Approximate), Expires: 09/28/2025 [facility] Comment on above: Expected: 09/28/2024 (Approximate), Expires: 09/28/2025 Start: 09-28-2024 End: 09-28-2025 Varicella zoster antibody, IgG Varicella zoster antibody, IgG Lab Routine Unknown varicella vaccination status Expected: 09/28/2024 (Approximate), Expires: 09/28/2025 [facility] Work Phone: Comment on above: Expected: 09/28/2024 (Approximate), Expires: 09/28/2025 Start: 09-04-2024 End: 09-04-2024 Patient encounter procedure 09/04/2024 5:00 PM EST Office Visit [facility] [address] [place] [address] Xenia Heaton NP [address] [place] [phone] Obesity (BMI 30-39.9) (Primary Dx); Hypothyroidism, unspecified type (CMS/HCC); Chronic migraine without aura without status migrainosus, not intractable (CMS/HCC); Encounter for wellness examination in adult [facility] Comment on above: Obesity (BMI 30-39.9 ) (Primary Dx); Hypothyroidism, unspecified type (CMS/HCC); Chronic migraine without aura without status migrainosus, not intractable (CMS/HCC); Encounter for wellness examination in adult Start: 05-21-2024 Influenza vaccination Influenza Vacc ine (#1) [facility] Start: 2009 Screening for malign ant neoplasm of cervix Pap Smear [facility] Patient Education [facility] Work Phone: Patient referral [facility] Work Phone: Immunizations Immunization Date Immunization Notes Care Provider Fa [facility] 06-27-2024 influenza virus vacc ine, unspecified formulation Xenia Florina NIGHTCLUB MANAGER Work Phone: [facility] 11-08-2023 hepatitis B vaccine, pediatric or pediatric/adolescent dosage Xenia Larissaz NIGHTCLUB MANAGER Work Phone: [facility] 07-07-2023 Influenza, High-dose Seasonal, Quadrivalent, Preservative Free Xenia Florina NIGHTCLUB MANAGER Work Phone: [facility] 07-07-2023 influenza virus vacc ine, unspecified formulation Xenia Larissaz NIGHTCLUB MANAGER Work Phone: [facility] 06-10-2023 hepatitis B vaccine, adult dosage Xenia Aichholz NIGHTCLUB MANAGER Work Phone: [facility] 05-11-2023 hepatitis B vaccine, adult dosage Xenia Aichholz NIGHTCLUB MANAGER Work Phone: [facility] 06-26-2015 tetanus toxoid, redu hayley diphtheria toxoid, and acellular pertussis vaccine, adsorbed Xenia Heaton NP Work Phone: [facility] Payers Date Payer Category Payer Self-pay 2024 Worker's Compensation [id number] 2023 Private Health Insurance [facility] [id number] 2023 Unknown [employer] [id number] 2023-Present [phone] [address] [address] [place] [address] [id number] 1988 Unknown [id number] .[id number] 1988 Unknown [id number] .[id number] 1988 Unknown [id number] [id number] .[id number] 1988 Unknown [id number] .[id number] 1988 Unknown [id number] .[id number] 1988 Unknown [id number] [id number] .[id number] 1988 Unknown [id number] [id number] .[id number] 1988 Unknown [id number] [id number] .2.1259 1959 Unknown [id number] 1959 Unknown [id number] Unknown [id number] .[id number] Social History Date Type Detail Facility Start: 11-04-2023 End: 01-17-2024 Sex Assigned At [facility] Start: 11-08-2023 End: 02-15-2024 Tobacco smoking status NHIS Never smoked tobacco (finding) [facility] Start: 1990 Sex Assigned At Female [facility] Start: 11-08-2023 Tobacco use and exposure Smokeless tobacco non-user [facility] Start: 02-21-2024 End: 10-12-2024 Alcoholic beverage intake Lifetime non-drinker (finding) [facility] Start: 11-04-2023 End: 01-17-2024 History of Social function [facility] Do you belong to any clubs or organizations such as pentecostalism groups, unions, fraternal or athletic groups, or school groups? Patient declined [facility] Are you now , , , , never or living with a partner? [facility] How often to you hav e a drink containing alcohol? Never [facility] Do you feel stress - tense, restless, nervous, or anxious, or unable to sleep at night because your mind is troubled all the time - these days [OSQ] Only a little [facility] (I/We) worried wheth er (my/our) food would run out before (I/we) got money to buy more. Never true [facility] In the past 12 month s, was there a time when you were not able to pay the mortgage or rent on time? No [facility] Start: 11-08-2023 Alcohol Comment caffine: 1 16o z daily [facility] Start: 1990 Sex assigned at Not on file [facility] Start: 11-04-2023 Gender identity Identifies as female gender (finding) [facility] NEGATED: Highlighted row [facility] Clinical Notes 02-09-2022 to 10-12-2024 Xenia Heaton NP - 10/12/2024 1:08 PM Roshan Heaton NP - 10/12/2024 1:08 PM GABRIELE HENDRIX - 10/12/2024 11:30 AM Roshan Heaton NP - 10/12/2024 11:30 AM ESTPatient Instructions Note Date & Type Note Facility 10-12-2024 History of Presen t illness Narrative Associated Problem(s): Obesity (BMI 30-39.9) Discussed with patient their BMI (actual, verses recommended). We have also discussed lifestyle modifications: attempts to perform physical activity as chronic conditions allow, also to monitor dietary intake: increasing protein/fruits/veggies and lowering carb intake (unless contraindicated). Limit sodas, juices, and sugary drinks. Associated Problem(s): COVID In office covid/flu test: + COVID Will treat with Paxlovid and decadron ( pt requests to have treatment) Work note given, has albuterol inhaler If resp distress go to ER Fu if not better Pt started having a headache/migraine yesterday it had progressed, scratchy throat, dizziness, runny/stuff nose, dry cough, sob, wheezing, tightness in the chest, fevers from 101-99.9, body aches and pain, fatigue, weakness, loss of appetite. Pt took covid test test at work- neg result pt called off work and is asking for note at least for today and tomorrow Pt was taking robitussin last dose was at 11pm- was not helping. Pt was told by pharmacy to limit her tylenol use due to the medication she is on Images from the original note were not included. Ruma Stafford is a 34 y.o. female presents with chief complaint of Nasal Congestion and Generalized Body Aches HPI: pt started having a headache/migraine yesterday it had progressed, scratchy throat, dizziness, runny/stuff nose, dry cough, sob, wheezing, tightness in the chest, fevers from 101-99.9, body aches and pain, fatigue, weakness, loss of appetite. Pt took covid test test at work- neg result pt called off work and is asking for note at least for today and tomorrow Pt was taking robitussin last dose was at 11pm- was not helping. Pt was told by pharmacy to limit her tylenol use due to the medication she is on URI This is a new problem. The current episode started yesterday. The problem has been gradually worsening. The maximum temperature recorded prior to her arrival was 100.4 - 100.9 F. The fever has been present for Less than 1 day. Associated symptoms include chest pain, congestion, coughing, headaches, rhinorrhea and sinus pain. Pertinent negatives include no abdominal pain, diarrhea, dysuria, ear pain, nausea, rash, sore throat, vomiting or wheezing. She has tried nothing for the symptoms. SUBJECTIVE: MEDICATIONS: Current Outpatient Medications Medication Instructions albuterol HFA 90 mcg/act inhaler 2 puffs, Inhalation, Every 6 hours PRN levothyroxine (SYNTHROID, LEVOXYL) 125 mcg, Oral, Daily before breakfast Qulipta 60 mg, Oral, Daily Qulipta 60 mg, Oral, Daily tiZANidine (ZANAFLEX) 4 mg, Oral, Nightly PRN, May take 1/2 -1 pill at bedtime. May cause drowsiness topiramate (TOPAMAX) 50 mg, Oral, Nightly Ubrelvy 100 mg, Daily PRN ALLERGIES: Allergies Allergen Reactions Torres Chocolate Flavoring Agent (Non-Screening) Oxycodone Hcl Itching and Swelling Oxycodone-Acetaminophen Itching and Swelling REVIEW OF SYMPTOMS: Review of Systems Constitutional: Negative for appetite change, chills and fever. HENT: Positive for congestion, rhinorrhea and sinus pain. Negative for ear pain and sore throat. Eyes: Negative for pain, discharge, redness and visual disturbance. Respiratory: Positive for cough. Negative for shortness of breath and wheezing. Cardiovascular: Positive for chest pain. Negative for palpitations and leg swelling. Gastrointestinal: Negative for abdominal pain, blood in stool, constipation, diarrhea, nausea and vomiting. Genitourinary: Negative for difficulty urinating, dysuria and frequency. Musculoskeletal: Negative for arthralgias, back pain, joint swelling and myalgias. Skin: Negative for rash and wound. Neurological: Positive for headaches. Negative for dizziness, tremors, seizures and syncope. Psychiatric/Behavioral: Negative for behavioral problems, self-injury and suicidal ideas. The patient is not nervous/anxious. Hematological: Does not bruise/bleed easily. Endocrine: Negative for polydipsia, polyphagia and polyuria. Allergic/Immunologic: Negative for environmental allergies and food allergies. PAST MEDICAL HISTORY Past Medical History: Diagnosis Date Chronic migraine without aura without status migrainosus, not intractable ([facility]) 11/08/2023 COVID-19 virus detected 11/08/2023 Depression ([facility]) 11/08/2023 Dyslexia 11/08/2023 Dysphagia History of TMJ disorder Hypertriglyceridemia ([facility]) 11/08/2023 Hypothyroid ([facility]) 11/08/2023 Insulin resistance syndrome Irritable bowel syndrome with constipation 11/08/2023 Paresthesia of both hands 11/08/2023 SARS-associated coronavirus infection 11/08/2023 Thyroid nodule ([facility]) Thyroid US on 11/19/23: no nodule Tremors of nervous system 11/08/2023 Past Surgical History: Procedure Laterality Date CHOLECYSTECTOMY WISDOM TOOTH EXTRACTION family history includes Bipolar disorder in an other family member; Cancer in her mother's sister; Clotting disorder in her mother; Diabetes in her mother; Heart disease in her father; Stroke in her mother. OBJECTIVE: Visit Vitals BP (!) 124/96 (BP Location: Left arm, Patient Position: Sitting, BP Cuff Size: Adult long) Pulse 100 Temp 100.1 F (Temporal) Resp 20 Wt 205 lb 12.8 oz SpO2 98% BMI 32.23 kg/m Smoking Status Never BSA 2.1 m Physical Exam Vitals and nursing note reviewed. Constitutional: General: She is not in acute distress. Appearance: Normal appearance. She is obese. She is ill-appearing. HENT: Head: Normocephalic and atraumatic. Right Ear: Tympanic membrane, ear canal and external ear normal. Left Ear: Tympanic membrane, ear canal and external ear normal. Nose: Congestion and rhinorrhea present. Mouth/Throat: Mouth: Mucous membranes are moist. Pharynx: No oropharyngeal exudate or posterior oropharyngeal erythema. Eyes: Extraocular Movements: Extraocular movements intact. Conjunctiva/sclera: Conjunctivae normal. Cardiovascular: Rate and Rhythm: Normal rate and regular rhythm. Pulses: Normal pulses. Heart sounds: Normal heart sounds. Pulmonary: Effort: Pulmonary effort is normal. Breath sounds: Normal breath sounds. No wheezing or rales. Abdominal: General: Bowel sounds are normal. There is no distension. Palpations: Abdomen is soft. There is no mass. Tenderness: There is no abdominal tenderness. Musculoskeletal: General: Normal range of motion. Cervical back: Normal range of motion and neck supple. Right lower leg: No edema. Left lower leg: No edema. Lymphadenopathy: Cervical: No cervical adenopathy. Skin: General: Skin is warm and dry. Capillary Refill: Capillary refill takes 2 to 3 seconds. Findings: No rash. Neurological: General: No focal deficit present. Mental Status: She is alert and oriented to person, place, and time. Psychiatric: Mood and Affect: Mood normal. Behavior: Behavior normal. Thought Content: Thought content normal. Judgment: Judgment normal. ASSESSMENT AND PLAN: Problem List Items Addressed This Visit Obesity (BMI 30-39.9) Discussed with patient their BMI (actual, verses recommended). We have also discussed lifestyle modifications: attempts to perform physical activity as chronic conditions allow, also to monitor dietary intake: increasing protein/fruits/veggies and lowering carb intake (unless contraindicated). Limit sodas, juices, and sugary drinks. COVID - Primary In office covid/flu test: + COVID Will treat with Paxlovid and decadron ( pt requests to have treatment) Work note given, has albuterol inhaler If resp distress go to ER Fu if not better Relevant Medications Nirmatrelvir&Ritonavir 300/100 (Paxlovid, 300/100,) 20 x 150 MG & 10 x 100MG tablet therapy pack dexAMETHasone (Decadron) 6 MG tablet documented in this encounter [facility] 10-12-2024 Instructions Xenia Heaton NP - 10/12/2024 11:30 AM EST Paxlovid and decadron Use inhaler prn Work note Fu if not better, to er if resp distress documented in this encounter [facility] 09-04-2024 History of Presen t illness Narrative Images from the original note were not included. Ruma Stafford is a 34 y.o. female presents with chief complaint of No chief complaint on file. HPI: Diet: balanced, limited carbs, protein size of palm of hand, dairy: not alot Activity: no organized activity Mental Health Concerns: none Falls in the last year: no Any hearing problems: none Any Vision problems: goes to eye doctor, wears glasses Any Hospitalizations in the last year: none Specialist: eye doctor, dentist, none Migraine This is a chronic problem. The current episode started more than 1 year ago. The problem occurs daily. The problem has been gradually worsening. The pain is located in the Left unilateral region. The pain does not radiate. The pain quality is similar to prior headaches. The quality of the pain is described as sharp. The pain is at a severity of 10/10 (10 at worst, a best 7/10 without ubrelvey,ubrelevy it is gone). Associated symptoms include nausea and phonophobia. Pertinent negatives include no abdominal pain, back pain, blurred vision, coughing, dizziness, ear pain, eye pain, eye redness, fever, numbness, photophobia, rhinorrhea, seizures, sinus pressure, sore throat, visual change, vomiting or weakness. Exacerbated by: stress. Treatments tried: topirmate, ubrelvey. The treatment provided moderate relief. Her past medical history is significant for migraine headaches. Thyroid Problem Presents for follow-up visit. Symptoms include constipation and fatigue. Patient reports no anxiety, cold intolerance, depressed mood, diarrhea, dry skin, heat intolerance, hoarse voice (more in the am), leg swelling, palpitations, tremors, visual change or weight gain. The symptoms have been stable. SUBJECTIVE: MEDICATIONS: Current Outpatient Medications Medication Instructions albuterol HFA 90 mcg/act inhaler 2 puffs, Inhalation, Every 6 hours PRN levothyroxine (SYNTHROID, LEVOXYL) 125 mcg, Oral, Daily before breakfast Qulipta 60 mg, Oral, Daily tiZANidine (ZANAFLEX) 4 mg, Oral, Nightly PRN, May take 1/2 -1 pill at bedtime. May cause drowsiness topiramate (TOPAMAX) 50 mg, Oral, Nightly Ubrelvy 100 mg, Daily PRN ALLERGIES: Allergies Allergen Reactions Torres Chocolate Flavoring Agent (Non-Screening) Oxycodone Hcl Itching and Swelling Oxycodone-Acetaminophen Itching and Swelling REVIEW OF SYMPTOMS: Review of Systems Constitutional: Positive for fatigue. Negative for appetite change, chills, fever and weight gain. HENT: Negative for congestion, ear pain, hoarse voice (more in the am), rhinorrhea, sinus pressure and sore throat. Eyes: Negative for blurred vision, photophobia, pain, discharge, redness and visual disturbance. Respiratory: Negative for cough, shortness of breath and wheezing. Cardiovascular: Negative for chest pain, palpitations and leg swelling. Gastrointestinal: Positive for constipation and nausea. Negative for abdominal pain, blood in stool, diarrhea and vomiting. Genitourinary: Negative for difficulty urinating, dysuria and frequency. Musculoskeletal: Negative for arthralgias, back pain, joint swelling and myalgias. Skin: Negative for rash and wound. Neurological: Positive for headaches. Negative for dizziness, tremors, seizures, syncope, weakness and numbness. Psychiatric/Behavioral: Negative for behavioral problems, self-injury and suicidal ideas. The patient is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 Family Medicine 10/15/23 Xenia Heaton NP [address] [place] [phone] Nurse Practitioner Family Medicine 10/15/23 Machinist Mate Relationship Specialty Start Date End Date Ruddy Painter MD [address] [place] [phone] PCP - General Family Medicine 10/15/23 Xenia Heaton NP [address] [place] [address] Nurse Practitioner Family Medicine 10/15/23 Goals (unrecognized section and content) Goals may be documented in a n alternate section FOR RECORDS PERTAINING TO PATIENTS WHO ARE OR HAVE BEEN ENROLLED IN A CHEMICAL DEPENDENCY/SUBSTANCEABUSE PROGRAM, SOME INFORMATION MAY BE OMITTED. This clinical summary was aggregated from multiple sources. Caution should be exercised in using it in the provision of clinical care. This summary normalizes information from multiple sources, and as a consequence, information in this document may materially change the coding, format and clinical context of patient data. In addition, data may be omitted in some cases. CLINICAL DECISIONS SHOULD BE BASED ON THE PRIMARY CLINICAL RECORDS. [employer] provides no warranty or guarantee of the accuracy or completeness of information in this document.
== END 2024-12-12 14:08 | disposition home or self-care (01) ==
PROVIDERS: PCP Nurse Practitioner; Visit Provider Nurse Practitioner
DX: R00.1 Bradycardia, unspecified (principal)
CPT/HCPCS: 93242